=== PATIENT | male | born 1950 | race Caucasian/White ===

== ENCOUNTER → 2023-08-09 18:51 | Outpatient (REF) | payer MEDICARE, OTHER, SELFPAY | LOC: PAVMRI 18:51 | PROVIDERS: ATTENDING PHYSICIAN Internal Medicine | DX: E11.65 Type 2 diabetes mellitus with hyperglycemia (principal); R03.0 Elevated blood-pressure reading, without diagnosis of hypertension; G45.9 Transient cerebral ischemic attack, unspecified | CPT/HCPCS: 70551 ==

== ENCOUNTER → 2023-08-23 13:28 | Outpatient (REF) | payer MEDICARE, OTHER, SELFPAY | LOC: DHCBC MAIN 13:28 | PROVIDERS: ATTENDING PHYSICIAN Internal Medicine Cardiovascular Disease; FAMILY PHYSICIAN Internal Medicine | DX: I10 Essential (primary) hypertension (principal); R41.0 Disorientation, unspecified | CPT/HCPCS: 93306 ==

== ENCOUNTER 2024-04-03 07:16 | Emergency (ER) | payer MEDICARE, OTHER, SELFPAY ==
[2024-04-03 08:14] VITALS: BMI 40.3
--- NOTE | 2024-04-03 08:22 | ED.GENMED ---
History of Present Illness
General
Chief Complaint: Back Pain
Source: patient, records and spouse
Exam Limitations: none
Time Seen by Provider: 04/03/24 08:04
Nursing documentation reviewed up to this point in time: agreed with
History of Present Illness
History of Present Illness:
73-year-old male presents emergency department complaining of low back pain, ongoing for the past week. He has had back pain in the past, when he fractured L1 in 2012, and an L5 injury in 2002. He saw Dr. Cyr, his primary care physician was
prescribed methylprednisolone, takes tramadol and ibuprofen. Is worse when he moves. He had some numbness in his left thigh but that has dissipated.
Past History
Past History
ED Past Medical History: Hypercholesterolemia
ED Past Surgical History: Appendectomy
Social History
Tobacco: Former smoker
Alcohol: None
Drug: None
Personal:
Living: with family
Review of Systems
Review of Systems
Allergies reviewed?: Yes
All Other Systems: Not applicable
Constitutional: Reports no symptoms
EENT: Reports no symptoms
Respiratory: Reports no symptoms
Cardiac: Reports no symptoms
ABD/GI: Reports no symptoms
: Reports no symptoms
Musculoskeletal: Reports back pain
Skin: Reports no symptoms
Neurological: Reports no symptoms
Endocrine: Reports no symptoms
Hematologic/Lymphatic: Reports no symptoms
Psychiatric: Reports no symptoms
Phy Exam
Physical Exam
Physical Exam:
Physical Exam
General: Appears uncomfortable
Neck: supple. no meningeal signs. normal posterior pharynx
Heart: s1/s2 regular rate and rhythm, no murmur. equal radial
pulses.
HEENT: Pupils equal round reactive to light, EOMI
Lungs: no acute respiratory distress. clear bilaterally
Abdomen: normal bowel sounds. not tender. no CVAT
back: mild pain with left straight leg raise, no step off or deformity on lumbar spine
Neuro: alert and oriented. no focal neurological deficits cranial nerves II through XII intact
Skin: no rash
Psychiatric: well kept. interactive and cooperative
Extremities: no edema. no calf tenderness. negative homans. good distal pulses
Course
Orders/Labs/Results
Orders:
Orders
04/03/24 08:19
IV Insert/Care/Rem.- Treatment PRN
Ketorolac [Toradol] 15 mg IV NOW STA
04/03/24 08:22
Lumbar Spine Complete, 4 View [CR Lumbar Spine Comp Min 4 Vw*] Urgent
Comment:
Reason For Exam: low back pain, pain with walking
04/03/24 08:42
Complete Blood Count/With Diff Urgent
Comprehensive Metabolic Panel Urgent
04/03/24 09:09
Morphine Sulfate 4 mg IV NOW STA
04/03/24 09:10
Ondansetron Injectable [Zofran] 4 mg IV NOW STA
Abnormal Lab Results
04/03/24
08:42
WBC 10.9 H 10^3/uL
(4.8-10.8)
Abs Immat Gran (auto) 0.1 H 10^3/uL
(0-0.05)
Absolute Neuts (auto) 7.5 H 10^3/uL
(1.4-6.5)
Absolute Monos (auto) 0.7 H 10^3/uL
(0.1-0.6)
Immature Gran % 0.7 H %
(0-0.5)
Glucose 181 H mg/dl
(70-99)
04/03/24 08:42
04/03/24 08:42
Vital Signs
Initial and Last Documented VS:
Initial Vital Signs
Pulse Resp BP Pulse Ox
74 18 175/73 93
04/03/24 09:22 04/03/24 09:22 04/03/24 09:22 04/03/24 09:22
Last Documented Vital Signs
Pulse Resp BP Pulse Ox
72 18 151/68 91
04/03/24 11:20 04/03/24 11:20 04/03/24 11:20 04/03/24 11:20
MDM/Problems Addressed
Differential Diagnosis Includes:
Sciatica, arthritis
MDM/Problems Addressed:
73-year-old male with low back pain, ambulating without difficulty. Do not suspect cauda equina. Stable for discharge.
*Radiology
Radiology exam reviewed: radiology read reviewed (Lumbar x-ray no acute findings earlier than)
*Pulse Oximetry
Patient hypoxic: no
*Critical Care Note
Total Time (30-74mins, 75-104mins- exclusive of procedures): Not Applicable
Patient Management
Social determinants of health affecting care: Living situation
Escalation/DeEscalation of care consider admission/obs:
Admit not indicated
ED Attending Note
-
Portions of this chart may have been created with voice recognition software.� Occasional wrong word or��sound alike� substitutions may have occurred due to the inherent limitations of voice recognition software.
Discharge Plan
Departure
Patient Disposition: Home (Routine Discharge)
Date of Disposition: 04/03/24
Time of Disposition: 11:02
Patient with high blood pressure during this ER visit?: Yes
Condition: Good
Discharge Problem:
Low back pain
Instructions: Low Back Pain (DC), BLOOD PRESSURE
Prescriptions:
No Action
Simvastatin
1 tab PO DAILY
oxycodone-acetaminophen 1 TABLET tablet
1 - 2 tab PO Q6HPRN PRN (Reason: back pain) Qty: 16 0RF
oxycodone-acetaminophen 1 EACH tablet
1 tab PO Q6HPRN PRN (Reason: back pain) Qty: 16 0RF
oxycodone-acetaminophen [Percocet] 5-325 mg tablet
1 tab PO Q6HPRN PRN (Reason: pain) Qty: 14 0RF
Referrals:
John Ralph MD [Active] - Call in 1-3 days for appt
Devante Cyr MD [Family Provider] - Call in 1-3 days for appt
Interventions
Interventions:
*Risk Screen - Suicide Last Done: 04/03/24 07:18
*General Assessment Last Done: 04/03/24 07:18
*Neglect/Abuse Screening Last Done: 04/03/24 07:18
*Nursing Disposition Last Done: 04/03/24 11:25
ED-Musculoskeletal Assessment Last Done: 04/03/24 08:12
Discharge Date and Time
Discharge Date/Time: 04/03/24 11:26
Print Language: YI
[2024-04-03] MEDS: TORADOL 15 MG IV (08:40)
[2024-04-03 08:52] LABS: % Basophils 0.8 % (0-2); % Eosinophils 1.4 % (0-6); % Immature Granulocytes 0.7 % (0-0.5); % Lymphocytes 21.6 % (20.5-51.1); % Monocytes 6.3 % (1.7-9.3); % Neutrophils 69.2 % (42.2-75.2); Absolute Basophils 0.1 10^3/uL (0-0.2); Absolute Eosinophils 0.2 10^3/uL (0-0.7); Absolute Immature Granulocytes 0.1 10^3/uL (0-0.05); Absolute Lymphocytes 2.4 10^3/uL (1.2-3.4); Absolute Monocytes 0.7 10^3/uL (0.1-0.6); Absolute Neutrophils 7.5 10^3/uL (1.4-6.5); Hematocrit 41.8 % (39.0-52.0); Hemoglobin 14.8 g/dL (13.0-18.0); Mean Corp Hgb Conc. 35.4 g/dL (33.0-37.0); Mean Corpuscular Hgb 30.2 pg (27.0-31.0); Mean Corpuscular Volume 85.3 fL (80.0-94.0); Mean Platelet Volume 8.9 fL (7.4-10.4); Nucleated Red Blood Cells % 0 % (-); Platelet Count 255 10^3/uL (130-400); Red Cell Dist. Width 12.7 % (11.5-14.5); White Blood Cell Count 10.9 10^3/uL (4.8-10.8)
[2024-04-03 09:05] LABS: ALT (SGPT) 29 U/L (0-50); AST (SGOT) 23 U/L (17-59); Albumin 4.5 g/dl (3.5-5.0); Alkaline Phosphatase 75 U/L (38-126); Blood Urea Nitrogen 17 mg/dl (9-20); Calcium 9.4 mg/dl (8.4-10.2); Carbon Dioxide 26 mmol/L (22-30); Chloride 101 mmol/L (98-107); Estimated Creatinine Clearance 118 ml/min; Glucose 181 mg/dl (70-99); Potassium 4.7 mmol/L (3.5-5.1); Sodium 139 mmol/L (135-145); Total Bilirubin 0.7 mg/dl (0.2-1.3); Total Protein 7.1 g/dl (6.3-8.2); eGFR > 60.00
[2024-04-03] MEDS: ZOFRAN 4 MG IV (09:19)
[2024-04-03] MEDS: MORPHINE SULFATE 4 MG IV (09:19)
[2024-04-03 09:22] VITALS: BP 175/73
[2024-04-03 11:20] VITALS: BP 151/68
== END 2024-04-03 11:26 | disposition home or self-care (01) ==
LOC: EMR 07:16
PROVIDERS: EMERGENCY PHYSICIAN Emergency Medicine; FAMILY PHYSICIAN Internal Medicine
DX: M54.50 Low back pain, unspecified (principal); R20.0 Anesthesia of skin; R03.0 Elevated blood-pressure reading, without diagnosis of hypertension; E78.00 Pure hypercholesterolemia, unspecified; Z87.891 Personal history of nicotine dependence
CPT/HCPCS: 99284; 96374; 96375 ×2; 72110; 80053; 85025; 99283

== ENCOUNTER 2024-04-03 12:31 | Emergency (ER) | payer MEDICARE, OTHER, SELFPAY ==
[2024-04-03 12:36] VITALS: BP 175/79
--- NOTE | 2024-04-03 13:30 | ED.GENMED ---
History of Present Illness
General
Chief Complaint: Back Pain
Source: patient and spouse
Exam Limitations: none
Time Seen by Provider: 04/03/24 13:01
Nursing documentation reviewed up to this point in time: agreed with
History of Present Illness
History of Present Illness:
73 yo male was seen here earlier today for low back pain, discharged and when he got home he had pain so bad he went down on all fours and couldn't get him up.
He states 2 weeks ago he woke up with pain lower back that has gradually worsened. He has been OK to do his ADLs until 5 days ago, he has been walking bent over, if he stands straight, gets severe pain 'it almost knocks me to the ground.'
Denies loss of bowel or bladder control, denies weakness in legs, had some numbness inner left thigh but that has subsided.
He has seen his PCP 3 times in past 2 weeks, has had steroid taper, Tylenol, Ibuprofen, Tramadol, all with no relief. Ordered MRI yesterday but pt hasn't scheduled it yet.
No recollection of overuse or injury.
He is requesting something stronger for pain.
Past History
Past History
ED Past Medical History: Hypercholesterolemia and NIDDM
ED Past Surgical History: Appendectomy
Social History
Tobacco: Former smoker
Alcohol: None
Drug: None
Personal:
Living: with family
Review of Systems
Review of Systems
Allergies reviewed?: Yes
All Other Systems: ROS reviewed and negative except as documented in HPI and ROS
Constitutional: Denies fever or chills
Respiratory: Denies trouble breathing
Cardiac: Denies chest pain
ABD/GI: Denies abdominal pain
: Denies incontinence or difficulty voiding
Musculoskeletal: Reports back pain
Skin: Reports no symptoms
Neurological: Reports no symptoms
Phy Exam
General Physical Exam
General Presentation: well appearing and no apparent distress
General age: appears stated age
General Skin: warm and dry
General Habitus: normal
General Mental: alert (pleasant)
Cardiovascular Exam
Cardiovascular Exam: regular rate/rhythm and no edema
Heart Sounds: normal
Pulmonary Exam
Pulmonary Exam: lungs clear
Gastrointestinal Exam
Gastrointestinal Exam: non tender and soft
Neurological Exam
Neurological Exam: alert and no motor deficits
Musculoskeletal Exam
Musculoskeletal Exam: back pain (Moves with relative ease, up and down from sit to stand easily, ambulates well, slightly flexed forward. Mild pain with palpation across lower back ST, no spinal bony tenderness)
Skin Exam
Skin Exam: normal color and warm/dry
Psychiatric Exam
Psychiatric Exam: normal mood/affect
Course
Vital Signs
Initial and Last Documented VS:
Initial Vital Signs
Temp Pulse Resp BP Pulse Ox
97.6 F 79 16 175/79 96
04/03/24 12:36 04/03/24 12:36 04/03/24 12:36 04/03/24 12:36 04/03/24 12:36
Last Documented Vital Signs
Temp Pulse Resp BP Pulse Ox
97.6 F 84 16 154/74 99
04/03/24 12:36 04/03/24 14:15 04/03/24 14:15 04/03/24 14:15 04/03/24 14:15
MDM/Problems Addressed
Differential Diagnosis Includes:
low back strain, osteoarthritis, bulging disc
MDM/Problems Addressed:
73 yo male was seen here earlier today for low back pain, discharged and when he got home he had pain so bad he went down on all fours and couldn't get him up.
He states 2 weeks ago he woke up with pain lower back that has gradually worsened. He has been OK to do his ADLs until 5 days ago, he has been walking bent over, if he stands straight, gets severe pain 'it almost knocks me to the ground.'
Denies loss of bowel or bladder control, denies weakness in legs, had some numbness inner left thigh but that has subsided.
He has seen his PCP 3 times in past 2 weeks, has had steroid taper, Tylenol, Ibuprofen, Tramadol, all with no relief. Ordered MRI yesterday but pt hasn't scheduled it yet.
No recollection of overuse or injury.
He is requesting something stronger for pain.
No cauda equina. Pt ambulating well, gets up and down from chair with ease, admits it's not bothering him much now.
spoke with MRI department and they will schedule MRI per their protocol.
Rx for Percocet sent to pt pharmacy
2:15 p.m.
Pt ambulated out with slightly slow, steady gait
Pt had no significant pain during visit
*Critical Care Note
Total Time (30-74mins, 75-104mins- exclusive of procedures): Not Applicable
ED Attending Note
-
Portions of this chart may have been created with voice recognition software.� Occasional wrong word or��sound alike� substitutions may have occurred due to the inherent limitations of voice recognition software.
Discharge Plan
Departure
Patient Disposition: Home (Routine Discharge)
Date of Disposition: 04/03/24
Time of Disposition: 14:08
Patient with high blood pressure during this ER visit?: Yes
Condition: Good
Discharge Problem:
Low back pain
Instructions: Low Back Pain (DC)
Prescriptions:
New
oxycodone-acetaminophen [Percocet] 5-325 mg tablet
1 tab PO Q6HPRN PRN (Reason: pain) Qty: 14 0RF
No Action
Simvastatin
1 tab PO DAILY
oxycodone-acetaminophen 1 TABLET tablet
1 - 2 tab PO Q6HPRN PRN (Reason: back pain) Qty: 16 0RF
oxycodone-acetaminophen 1 EACH tablet
1 tab PO Q6HPRN PRN (Reason: back pain) Qty: 16 0RF
Referrals:
Devante Cyr MD [Family Provider] - Call in 1-3 days for appt
Activity Restrictions/Additional Instructions:
As we discussed, follow-up with Dr. Cyr after your MRI. There should be a prescription at your pharmacy for the oxycodone�acetaminophen which is Percocet.
Call me at [phone] if the pharmacy does not have the prescription.
I called MRI dept. and left your number for a call back to schedule MRI so keep your phone by you.
Interventions
Interventions:
*Risk Screen - Suicide Last Done: 04/03/24 13:08
*General Assessment Last Done: 04/03/24 13:08
*Neglect/Abuse Screening Last Done: 04/03/24 13:08
ED- Fall Risk Assessment Last Done: 04/03/24 13:08
*Nursing Disposition Last Done: 04/03/24 14:10
ED-Musculoskeletal Assessment Last Done: 04/03/24 13:08
Discharge Date and Time
Discharge Date/Time: 04/03/24 14:23
Print Language: CAMBODIAN
--- NOTE | 2024-04-03 14:11 | EDRN ---
Pts on phone with MRI for sooner follow up appointment.
[2024-04-03 14:15] VITALS: BP 154/74
== END 2024-04-03 14:23 | disposition home or self-care (01) ==
LOC: EMR 12:31
PROVIDERS: EMERGENCY PHYSICIAN Student in an Organized Health Care Education/Training Program; FAMILY PHYSICIAN Internal Medicine
DX: M54.50 Low back pain, unspecified (principal); R26.2 Difficulty in walking, not elsewhere classified; R03.0 Elevated blood-pressure reading, without diagnosis of hypertension; E11.9 Type 2 diabetes mellitus without complications; E78.00 Pure hypercholesterolemia, unspecified; Z87.891 Personal history of nicotine dependence
CPT/HCPCS: 99283

== ENCOUNTER → 2024-04-04 16:45 | Outpatient (REF) | payer MEDICARE, OTHER, SELFPAY | LOC: MRI 16:45 | PROVIDERS: ATTENDING PHYSICIAN Internal Medicine | DX: M51.36 Other intervertebral disc degeneration, lumbar region (principal) | CPT/HCPCS: 72148 ==

== ENCOUNTER → 2024-05-06 13:39 | Outpatient (REF) | payer MEDICARE, OTHER, SELFPAY | LOC: MRI 3T 13:39 | PROVIDERS: ATTENDING PHYSICIAN Internal Medicine | DX: E11.65 Type 2 diabetes mellitus with hyperglycemia (principal) | CPT/HCPCS: 70551 ==

== ENCOUNTER → 2025-04-01 11:19 | Outpatient (REF) | payer MEDICARE, OTHER, SELFPAY | LOC: HWRCS 11:19 | PROVIDERS: ATTENDING PHYSICIAN Internal Medicine Cardiovascular Disease; FAMILY PHYSICIAN Internal Medicine | DX: R07.89 Other chest pain (principal) | CPT/HCPCS: 78452; 93017; A9500; J2785 ==

== ENCOUNTER 2025-06-02 07:47 | Emergency (ER) | payer MEDICARE, OTHER, SELFPAY ==
[2025-06-02 07:52] VITALS: BP 168/83
[2025-06-02 08:00] VITALS: BMI 39.0
[2025-06-02 08:18] VITALS: BP 163/84
--- NOTE | 2025-06-02 08:45 | ED.CVA ---
History of Present Illness
<Jodi Cedeno MD, Resident - Last Filed: 06/02/25 12:47>
General
Chief Complaint: CVA/TIA Symptoms
Source: patient
Exam Limitations: none
Time Seen by Provider: 06/02/25 08:09
Onset of Stroke Symptoms
Onset of symptoms known: Yes
Date of onset of symptoms: 06/01/25
Time of onset of symptoms: 21:00
Time pt last seen normal is known: Yes
Date last time pt seen normal: 06/01/25
Time last time pt seen normal: 21:00
History of Present Illness
History of Present Illness:
Patient is a 74year old male with PMH significant for NIDDM,and Hyperlipidemia who is here for evaluation of transient symptoms of slurred speech, dizziness and inability to make sense of sentences.He developed the symptoms arounf 9pm last
night,while watching television. He had initially dizziness and then a headache followed by slurred speech,. He and his were driving to the hospital but then the symptoms self resolved and they decided to go back. Throughout the night, he
was stressed and was having weird thoughts. He woke up in the morning and called his primary care physician who suggested that he should come to the ER.
He did report occasional dizziness for the last few months and has seen a neurologist on 05/30/2025. The neurologist did order a head CT, [facility] Since this is new onset of symptoms we will do a head CT.
Denies any headache, weakness, dizziness, numbness, tingling, chest pain, or slurring of speech at this time
Past History
<Jodi Cedeno MD, Resident - Last Filed: 06/02/25 12:47>
Past History
ED Past Medical History: Hypercholesterolemia
ED Past Surgical History: Appendectomy
Social History
Tobacco: Former smoker
Alcohol: None
Drug: None
Personal:
Living: with family
Review of Systems
<Jodi Cedeno MD, Resident - Last Filed: 06/02/25 12:47>
Review of Systems
All Other Systems: ROS reviewed and negative except as documented in HPI and ROS
Phy Exam
<Jodi Cedeno MD, Resident - Last Filed: 06/02/25 12:47>
General Physical Exam
General Presentation: well appearing and no apparent distress
General age: appears stated age
General Skin: warm and dry
General Habitus: normal
General Mental: alert
General Hydration: appears well hydrated
Cardiovascular Exam
Cardiovascular Exam: regular rate/rhythm, no edema, no murmur and normal peripheral pulses
Pulmonary Exam
Pulmonary Exam: lungs clear, no respiratory distress, no rales, no rhonchi and no wheezing
Gastrointestinal Exam
Gastrointestinal Exam: normal bowel sounds, non tender and soft
Neurological Exam
Neurological Exam: alert, oriented x3, CN II-XII intact, no motor deficits, no sensory deficits and cerebellum intact
NIH Stroke Score
Level of Consciousness: 0 - Alert
Best Gaze: 0-Normal
Visual [place]: 0=Normal, no visual loss
Facial palsy: 0=Normal, symmetrical
Motor - Right Arm: 0=No drift 10 seconds
Motor - Left Arm: 0=No drift 10 seconds
Motor - Right Le-No drift 5 seconds
Motor - Left Le-No drift 5 seconds
Sensation: 0-Normal
Best Language: 0-No aphasia
Dysarthria: 0-Normal
Extinction and Inattention: 0-No abnormality
[place] Coma Scale
Eye Opening: Spontaneous
Verbal Response: Oriented
Motor Response: Obeys Commands
GCS Total Score: 15
Musculoskeletal Exam
Musculoskeletal Exam: full ROM
<Horacio Fernandes MD - Last Filed: 06/03/25 19:19>
[place] Coma Scale
GCS Total Score: 15
Course
<Jodi Cedeno MD, Resident - Last Filed: 06/02/25 12:47>
Orders/Labs/Results
Orders:
Orders
06/02/25 08:37
Electrocardiogram (*1) Urgent
Reason for Study: TIA/Stroke
EKG- Treatment ONCE
06/02/25 08:53
Complete Blood Count/With Diff Urgent
Comprehensive Metabolic Panel Urgent
Ferritin Urgent
Comment: ADD ON
Folate Urgent
Comment: ADD ON
Magnesium Urgent
TSH Reflex To Free T4 Urgent
Comment: ADD ON
Vitamin B12 Urgent
Comment: ADD ON
06/02/25 09:28
NEUROLOGY CONSULT Urgent
Consulting Provider: Clemente Russell
Was physician already notified: Yes
Reason for consult: Slurred speech
06/02/25 09:38
CT Head & Neck Angio W/wo IV Routine
Comment:
Reason For Exam: transient aphasia/dysarthria
06/02/25 11:59
Echo 2D MMode Doppler [Echo 2D MMode Color/Doppler] Urgent
Reason for Study: TIA
06/02/25 13:48
Add On- LAB Routine
Tests Added?: folate, ferritin, TSH reflex, B12
Abnormal Lab Results
06/02/25
08:53
Abs Immat Gran (auto) 0.1 H 10^3/uL
(0-0.05)
Immature Gran % 0.8 H %
(0-0.5)
Glucose 176 H mg/dl
(70-99)
06/02/25 08:53
06/02/25 08:53
Vital Signs
Initial and Last Documented VS:
Initial Vital Signs
Temp Pulse Resp BP Pulse Ox
98.2 F 79 16 168/83 96
06/02/25 07:52 06/02/25 07:52 06/02/25 07:52 06/02/25 07:52 06/02/25 07:52
Last Documented Vital Signs
Temp Pulse Resp BP Pulse Ox
98.2 F 71 20 130/67 97
06/02/25 07:52 06/02/25 11:00 06/02/25 11:00 06/02/25 11:00 06/02/25 11:00
<Horacio Fernandes MD - Last Filed: 06/03/25 19:19>
Orders/Labs/Results
Orders:
Orders
06/02/25 08:37
Electrocardiogram (*1) Urgent
Reason for Study: TIA/Stroke
EKG- Treatment ONCE
06/02/25 08:53
Complete Blood Count/With Diff Urgent
Comprehensive Metabolic Panel Urgent
Ferritin Urgent
Comment: ADD ON
Folate Urgent
Comment: ADD ON
Magnesium Urgent
TSH Reflex To Free T4 Urgent
Comment: ADD ON
Vitamin B12 Urgent
Comment: ADD ON
06/02/25 09:28
NEUROLOGY CONSULT Urgent
Consulting Provider: Clemente Russell
Was physician already notified: Yes
Reason for consult: Slurred speech
06/02/25 09:38
CT Head & Neck Angio W/wo IV Routine
Comment:
Reason For Exam: transient aphasia/dysarthria
06/02/25 11:59
Echo 2D MMode Doppler [Echo 2D MMode Color/Doppler] Urgent
Reason for Study: TIA
06/02/25 13:48
Add On- LAB Routine
Tests Added?: folate, ferritin, TSH reflex, B12
Abnormal Lab Results
06/02/25
08:53
Abs Immat Gran (auto) 0.1 H 10^3/uL
(0-0.05)
Immature Gran % 0.8 H %
(0-0.5)
Glucose 176 H mg/dl
(70-99)
06/02/25 08:53
06/02/25 08:53
Vital Signs
Initial and Last Documented VS:
Initial Vital Signs
Temp Pulse Resp BP Pulse Ox
98.2 F 79 16 168/83 96
06/02/25 07:52 06/02/25 07:52 06/02/25 07:52 06/02/25 07:52 06/02/25 07:52
Last Documented Vital Signs
Temp Pulse Resp BP Pulse Ox
98.2 F 71 20 130/67 97
06/02/25 07:52 06/02/25 11:00 06/02/25 11:00 06/02/25 11:00 06/02/25 11:00
<Jodi Cedeno MD, Resident - Last Filed: 06/02/25 12:47>
MDM/Problems Addressed
Differential Diagnosis Includes:
TIA/stroke
MDM/Problems Addressed:
Based on clinical assessment, symptoms consistent with transient ischemic attack. Will do a head CT without IV contrast. Will also order baseline blood work.
CT head and neck unremarkable
Neurology consult appreciated-recommended dual antiplatelet therapy for neck 21 days and then indefinite aspirin therapy lifelong
Educated about stroke symptoms
Echocardiogram done
Would recommend to watch out for neurological symptoms and do not wait to present to the ED.
<Jodi Cedeno MD, Resident - Last Filed: 06/02/25 12:47>
*Pulse Oximetry
SaO2: 98
Oxygen Mode of Delivery: Room air
Patient hypoxic: no
*Critical Care Note
Total Time (30-74mins, 75-104mins- exclusive of procedures): Not Applicable
<Horacio Fernandes MD - Last Filed: 06/03/25 19:19>
*EKG
Interpreted by ED Provider?: Yes
EKG Intrepretation Date: 06/02/25
Heart Rate: 75
Rate: normal
Rhythm: sinus
[place]: normal axis
ED Attending Note
<Jodi Cedeno MD, Resident - Last Filed: 06/02/25 12:47>
-
Portions of this chart may have been created with voice recognition software.� Occasional wrong word or��sound alike� substitutions may have occurred due to the inherent limitations of voice recognition software.
<Horacio Fernandes MD - Last Filed: 06/03/25 19:19>
ED Attending Note
Patient seen and examined by attending physician: Yes
ED Attending Note:
Patient with history of diabetes and hypercholesterolemia, presents to ED secondary to sudden onset of slurred speech with dizziness, while watching TV last night around 9 PM. Symptoms lasted approximate 30 minutes with spontaneous resolution.
Since then, patient has not had any recurrent symptoms. This morning, when he woke up, without any symptoms, he called his primary care physician who advised patient come to ED for an evaluation. Denies headache. Denies difficulty with
swallowing. Denies loss of sensation or weakness. Denies difficulty with ambulation. Denies previous history of similar symptoms. However, over the past 7 to 8 months, he has had dizziness, for which she was evaluated by neurologist recently.
He had an outpatient imaging study last week. He does not know the results of the study.
Physical Exam
General: no apparent distress, not acutely ill. afebrile
Head: nc/at. eomi
Neck: supple. no meningeal signs.
Heart: s1/s2 regular rate and rhythm
Lungs: no acute respiratory distress. clear bilaterally
Abdomen: normal bowel sounds. not tender.
Neuro: alert and oriented x 3. no focal sensory/motor deficit. normal speech. normal gait
Skin: no rash
Psychiatric: well kept. interactive and cooperative
Extremities: no edema. no calf tenderness.
History and exam concerning for TIA. CT head pending. Will consult neurology afterwards.
Pt evaluated in ED by (neurology) - recommends obtaining CTA head/neck.
CTA head/neck report reviewed and discussed with patient and who evaluated the patient again afterwards. Recommends D/C on DAP (asa/plavix) x 3 weeks, followed by aspirin 81mg only daily afterwards, along with outpatient neurology f/u.
Pt expresses understanding at time of discharge.
Discharge Plan
Departure
Patient Disposition: Home (Routine Discharge)
Date of Disposition: 06/02/25
Time of Disposition: 11:15
Patient with high blood pressure during this ER visit?: Yes
Discharge Problem:
CVA/TIA
Instructions: Stroke (DC), Transient Ischemic Attack (DC)
Prescriptions:
No Action
simvastatin [Zocor] 40 mg Tablet
40 mg PO DAILY
aspirin 81 mg Tablet,Delayed Release (Dr/Ec)
81 mg PO DAILY
metformin 500 mg Tablet Extended Release 24 Hr
1,000 mg PO DAILY
clopidogrel [Plavix] 75 mg tablet
75 mg PO DAILY
Referrals:
Clemente Russell MD [Active, Neurology] - Call in 1-3 days for appt
Devante Cyr MD [Family Provider, Internal Medicine]
Activity Restrictions/Additional Instructions:
DUAL ANTI PLATELET THERAPY-21 DAYS-(ASPIRIN 81MG + PLAVIX 75MG)
CONTINUE ASPIRIN AFTER 21 DAYS INDEFINITELY LIFELONG
FOLLOW UP WITH NEUROLOGY ON OUTPATIENT BASIS
IN CASE OF STROKE S/S PLEASE RETURN TO ED IMMEDIATELY
Interventions
Interventions:
*Risk Screen - Suicide Last Done: 06/02/25 07:52
*General Assessment Last Done: 06/02/25 08:37
*Neglect/Abuse Screening Last Done: 06/02/25 07:53
*ED- Fall Risk Assessment Last Done: 06/02/25 08:37
*Nursing Disposition Last Done: 06/02/25 12:30
ED- Pulmonary Assessment Last Done: 06/02/25 08:00
ED- Neurological Assessment Last Done: 06/02/25 08:00
ED- Cardiac Assessment Last Done: 06/02/25 08:00
ED Swallowing Screen Last Done: 06/02/25 08:00
Discharge Date and Time
Discharge Date/Time: 06/02/25 12:30
Print Language: GERMAN
[2025-06-02 09:00] VITALS: BP 154/78
[2025-06-02 09:04] LABS: Hematocrit 41.5 % (39.0-52.0); Hemoglobin 14.0 g/dL (13.0-18.0); Mean Corp Hgb Conc. 33.7 g/dL (33.0-37.0); Mean Corpuscular Volume 87.9 fL (80.0-94.0); Nucleated Red Blood Cells % 0 % (-); Platelet Count 293 10^3/uL (130-400); Red Cell Dist. Width 12.2 % (11.5-14.5)
[2025-06-02 09:19] LABS: ALT (SGPT) 32 U/L (0-50); AST (SGOT) 30 U/L (17-59); Albumin 4.4 g/dl (3.5-5.0); Alkaline Phosphatase 79 U/L (38-126); Blood Urea Nitrogen 12 mg/dl (9-20); Calcium 9.9 mg/dl (8.4-10.2); Carbon Dioxide 29 mmol/L (22-30); Chloride 101 mmol/L (98-107); Estimated Creatinine Clearance 103 ml/min; Glucose 176 mg/dl (70-99); Magnesium 1.7 mg/dl (1.6-2.3); Potassium 4.7 mmol/L (3.5-5.1); Sodium 135 mmol/L (135-145); Total Protein 7.4 g/dl (6.3-8.2); eGFR > 60.00
--- NOTE | 2025-06-02 09:29 | CON.NEURO4 ---
Addendum entered and electronically signed by Clemente Russell MD 06/02/25 21:45:
The patient was seen and examined today along with the nurse practitioner Ambar Barber, and I agree with her assessment and management plan. Given below is my addendum.
The patient is a 74 years old male who presented to the hospital with report of transient speech difficulty and dysarthria that started at around 9 PM last night and lasted for about an hour. The patient returned to his baseline and today presented
to have himself evaluated for that transient speech difficulty that occurred last night.
Neurologic examination:
Alert and oriented x 3, speech is clear, the cranial nerves II to XII are grossly intact, there is no visual field deficit. The motor strength is grossly 5 out of 5 bilaterally, the sensations are intact and there was no limb ataxia seen.
The CT of the brain did not show any acute intracranial process. CT of the head and neck did not show a large vessel occlusion.
The patient likely had a left hemispheric transient ischemic attack. The plan is to keep the patient on aspirin 81 mg daily and clopidogrel 75 mg daily for 21 days and after 21 days the plan is to stop clopidogrel and continue with aspirin 81 mg
daily indefinitely. The patient also needs to be on atorvastatin 40 mg daily.
Follow-up with neurology in 2 weeks as an outpatient.
Original Note:
Consultation - Neurology 4
-
CONSULTING PHYSICIAN: Clemente Russell MD
REFERRING PHYSICIAN: ER/Dr. Fernandes
DICTATED BY: KWESI Ramos
DATE/TIME OF REQUEST: 06/02/25
DATE/TIME OF CONSULTATION: 06/02/25
Reason for Consultation: Transient speech changes
History of Present Illness:
This is a 74-year-old right-handed male who has presented to the hospital with report of transient speech difficulty and dysarthria last night. He is followed by Neurology Dr. Saldaña as an outpatient due to memory difficulty, dizziness, and tremor. He
reports that he completed neuropsychological testing on 05/30/25.
From previous evaluation by Neurology Dr. Saldaña on 10/25/24:
'
'
Patient reports that yesterday (06/01/25) he was watching TV when he suddenly developed a sense of dizziness, mild headache, and then proceeded to have slurred speech and difficulty getting his words out. He reports that his speech difficulty
completely resolved after one hour and he proceeded to go to bed for the night. This morning (06/02/25) he called his PCP who referred him to the ER for evaluation. CTA head/neck was obtained on arrival and is negative for any acute abnormalities.
He denies any headache, dizziness, vision changes, speech/swallow difficulty, numbness, and weakness. He reports that he was previously taking aspirin 81mg due to confusional episodes that were concerning for a transient ischemic attack, he stopped
taking this several months ago due to bruising on his hands.
Past Medical History: HTN, HLD, NIDDM, cognitive impairment, tremor
Surgical History: Appendectomy.
Family History: Reviewed and noncontributory.
Social History: Former smoker. Denies alcohol and illicit drug use.
Allergies: No known allergies.
Home Medications: See below.
Review of Symptoms:
Patient denies any fever, headache, chest pain, shortness of breath, GI or symptoms.
�Per the HPI.�All systems are reviewed negative except above.
Physical Exam:
The patient is afebrile, abdomen is nondistended, breathing is unlabored, skin is warm and dry, no edema.
NIH Stroke Scale:
I performed the NIH stroke scale on the patient on 06/02/25 at 0930. The patient scored 0 points on the NIH stroke scale assessment, which were assigned as follows: See below.
Neurologic Examination:
The patient is awake, alert and oriented x 3. He is able to follow commands and answer questions appropriately. There is no aphasia or dysarthria. On cranial nerve assessment, pupils are 3 mm bilateral, round and reactive to light and
accommodation. Visual eastman are full. Extraocular movements are intact. Facial sensations are intact and bilaterally symmetrical, there is no facial asymmetry. Hearing is intact bilaterally to normal conversation volume. Tongue palate and uvula are
midline. Sternocleidomastoid strengths are full bilaterally. Motor strengths are 5/5 bilateral upper and lower extremities on medical research [place] scale. There is no drift or involuntary movement noted. There was no extinction noted on double
simultaneous stimulation. Coordination is intact by finger to nose bilaterally.
Lab Results: See below.
Neuro Imaging:
1. CTA head/neck 06/02/25: CT Brain: No acute intracranial process. Mild senescent changes, similar to prior. There is partial opacification of the right maxillary sinus for which acute sinusitis is possible. Recommend correlation with
symptomatology. CTA Head: No significant arterial stenosis. Mild atherosclerotic calcification of the carotid siphons. No aneurysm. CTA Neck: No significant arterial stenosis. Mild atherosclerotic calcifications of the bilateral carotid bifurcations
without definite stenosis.
Differentials for the patient's presentation include:
1. Transient speech difficulty; uncertain etiology, possibilities include transient ischemic attack, headache phenomenon, metabolic disturbance in the setting of cognitive impairment.
Patient has the following risk factors for their symptoms: Cognitive impairment, HTN, HLD, DM, age
IV Tenecteplase/IAT candidacy: Not a candidate due to resolution of symptoms, NIHSS 0, no LVO.
Recommendations:
-Initiate DAPT with aspirin 81mg and clopidogrel 75mg daily for 21 days. After 21 days, stop clopidogrel and continue aspirin 81mg daily only, indefinitely.
-Goal normotension.
-Provide patient with a stroke education packet.
-Checking blood work for metabolic disturbances.
-TTE pending.
-LDL goal <70. Initiate atorvastatin 40mg daily.
-Goal normoglycemia.
-Follow-up with Neurology as an outpatient.
Discussed patient care with: Dr. Russell, the patient
Vital Signs and Labs
-
Vital Signs and Labs:
Vital Signs
Temp Pulse Resp BP Pulse Ox
98.2 F 78 16 163/84 98
06/02/25 07:52 06/02/25 08:30 06/02/25 08:30 06/02/25 08:18 06/02/25 08:46
Lab Results
06/02/25 08:53
06/02/25 08:53
Sodium 135 mmol/L (135-145) 06/02/25 08:53
Potassium 4.7 mmol/L (3.5-5.1) 06/02/25 08:53
BUN 12 mg/dl (9-20) 06/02/25 08:53
Glucose 176 mg/dl (70-99) H 06/02/25 08:53
Calcium 9.9 mg/dl (8.4-10.2) 06/02/25 08:53
Medications
-
Home Medications
�Medication �Instructions �Recorded
Simvastatin 1 tab PO DAILY 09/26/12
oxycodone-acetaminophen 5 mg-325 1 - 2 tab PO Q6HPRN PRN back pain 09/26/12
mg tablet #16 tabs
oxycodone-acetaminophen 5 mg-325 1 tab PO Q6HPRN PRN back pain #16 09/26/12
mg tablet tabs
oxycodone-acetaminophen 5 mg-325 1 tab PO Q6HPRN PRN pain #14 tabs 04/03/24
mg tablet (Percocet)
NIH Stroke Score
Subsequent NIH Scale
Date of Subsequent NIH Scale: 06/02/25
Time of Subsequent NIH Scale: 09:30
NIH Stroke Score
Level of Consciousness: 0 - Alert
LOC Questions: 0-Answers both correctly
LOC Commands: 0-Performs both correctly
Best Horizontal Gaze: 0-Normal
Visual Eastman: 0=Normal, no visual loss
Facial Palsy: 0=Normal, symmetrical
Motor - Right Arm: 0=No drift 10 seconds
Motor - Left Arm: 0=No drift 10 seconds
Motor - Right Le-No drift 5 seconds
Motor - Left Le-No drift 5 seconds
Limb Ataxia: 0-Absent
Sensation: 0-Normal
Best Language: 0-No aphasia
Dysarthria: 0-Normal
Extinction and Inattention: 0-No abnormality
NIH Total Score:: 0
Modified Justin (mRS) Score
Modified [place] Scale (mRS): No symptoms
Score: 0
Alteplase Contraindication
Inclusion and Exclusion criteria reviewed: Yes
Reasons for NON-Tx with Thrombolytics ABSOLUTE Exclusions: Greater than 4.5 hrs from onset of sxs
IAT Contraindications: NIHSS < 6 and Imaging doesn't show large vessel occlusion as cause of stroke
[2025-06-02 10:19] VITALS: BP 159/73
[2025-06-02 11:00] VITALS: BP 130/67
--- NOTE | 2025-06-02 11:33 | CON.NEURO4 ---
Consultation - Neurology 4
-
CONSULTING PHYSICIAN: Clemente Russell MD
REFERRING PHYSICIAN:
DICTATED BY:
DATE/TIME OF REQUEST:
DATE/TIME OF CONSULTATION:
Reason for Consultation:
History of Present Illness:
This is a (age) year old (left/right) handed (male/female) who has presented to the hospital with (chief complaint). Patient's symptoms began (time) ago, when (describe).
- For stroke patients please mention last known well time.
- Describe associated symptoms, if any. Describe any treatment taken and intervention made.
- Describe the current status of symptoms.
- Describe if patient is compliant with current medications - name the medications and follow up with the physician.
- Describe if patient has had any similar symptoms in the past.
- For stroke patients, mention if patient has had a prior stroke and if there are any residual deficits.
- If the history has been obtained from sources other than the patient, mention 'this history has been contributed to by'
and name the source: family/medical record/long-term/caregiver/nursing ect.
Past Medical History:
Surgical History:
Family History:
Social History:
Allergies:
Home Medications:
Review of Symptoms:
Patient denies any fever, headache, chest pain, shortness of breath, GI or symptoms.
�Per the HPI.�All systems are reviewed negative except above.
�- Remove any of these problems that patient may have complained about in the HPI.
�- If patient is unresponsive, intubated or demented, say 'Per the HPI. I am unable to obtain a complete review of systems�because of patient's inability to provide history.'
Vital Signs:
The patient has a blood pressure of ( ) , heart rate ( ) , temperature ( ) , respiratory rate ( ) and a pulse ox of ( ) on
(room air / oxygen by nasal cannula / ventilator).
Physical Exam:
The patient is afebrile, heart sounds S1 and S2 are (regular / irregular), and chest is clear to auscultation bilaterally.
- If not clear, describe.
NIH Stroke Scale (if applicable):
I performed the NIH stroke scale on the patient on (date & time). The patient scored ( ) points on the NIH stroke scale assessment, which were assigned as follows:
Neurologic Examination:
The patient is awake, alert and oriented x 3. (He/She) is able to follow commands and answer questions appropriately. There is no aphasia or dysarthria. On cranial nerve assessment, pupils are 3 mm bilateral, round and reactive to light and
accommodation. Visual sharpe are full. Extraocular movements are intact. Facial sensations are intact and bilaterally symmetrical, there is no facial asymmetry. Hearing is intact bilaterally to normal conversation volume. Tongue palate and uvula
are midline. Sternocleidomastoid strengths are full bilaterally. Motor strengths are 5/5 bilateral upper and lower extremities on medical research [place] scale. There is no drift or involuntary movement noted. Deep tendon reflexes are 2+ bilateral
upper and lower extremities and Babinski is absent bilaterally. Sensations of pain, touch, temperature and vibration are intact and bilaterally symmetrical. There was no extinction noted on double simultaneous stimulation. Coordination is intact by
finger to nose bilaterally.
Lab Results:
Neuro Imaging:
Impression:
(Mr. / Ms.) ENA LAUREANO is a 74 year old M who has presented to the hospital with (symptoms/chief complaint).
Differentials for the patient's presentation include:
1.
2.
3.
4.
Patient has the following risk factors for their symptoms:
IV Tenecteplase/IAT candidacy
Recommendations:
1.
2.
3.
Discussed patient care with:
[2025-06-02 15:15] LABS: Ferritin 306.0 ng/ml (17.9-464.0)
[2025-06-02 15:46] LABS: Folate 2.9 ng/ml (2.76-20); Vitamin B12 471 pg/ml (239-931)
== END 2025-06-02 12:30 | disposition home or self-care (01) ==
LOC: EMR 07:47
PROVIDERS: CONSULT PHYSICIAN Psychiatry & Neurology Neurology; EMERGENCY PHYSICIAN Emergency Medicine; FAMILY PHYSICIAN Internal Medicine
DX: G45.9 Transient cerebral ischemic attack, unspecified (principal); E11.9 Type 2 diabetes mellitus without complications; E78.00 Pure hypercholesterolemia, unspecified; I10 Essential (primary) hypertension; Z87.891 Personal history of nicotine dependence; Z90.49 Acquired absence of other specified parts of digestive tract
CPT/HCPCS: 99284; 70496; 70498; 80053; 82607; 82728; 82746; 83735; 84443; 85025; 93005; 93306; Q9967

== ENCOUNTER 2025-06-03 16:27 | Observation (INO) | payer MEDICARE, OTHER, SELFPAY ==
[2025-06-03] VITALS (7 sets, daily range): BP systolic 142–176; BP diastolic 64–79; BMI 38.6
[2025-06-03 14:30] LABS: Glucose - Point of Care 217 mg/dl (70-99)
[2025-06-03] MEDS: PLAVIX 300 MG PO (14:48)
[2025-06-03] MEDS: ASPIRIN 325 MG PO (14:48)
--- NOTE | 2025-06-03 14:51 | ED.CVA ---
History of Present Illness
General
Chief Complaint: CVA/TIA Symptoms
Time Seen by Provider: 06/03/25 14:37
Onset of Stroke Symptoms
Onset of symptoms known: Yes
Date of onset of symptoms: 06/03/25
History of Present Illness
History of Present Illness:
Patient is a 74-year-old man presenting to the emergency department with episode of dysarthria expressive aphasia. Patient last known normal was an hour prior to arrival when he developed dysarthria. On arrival here triage noted that he has
significant expressive aphasia so stroke alert was called. During my evaluation his symptoms have resolved.
Past History
Past History
ED Past Medical History: Hypercholesterolemia
ED Past Surgical History: Appendectomy
Social History
Tobacco: Former smoker
Alcohol: None
Drug: None
Personal:
Living: with family
Phy Exam
Physical Exam
Physical Exam:
GENERAL: in no acute distress
HEENT: normocephalic, extraocular movements intact, moist oral mucosa
NECK: normal inspection
RESPIRATORY: no respiratory distress, clear to auscultation bilaterally
CARDIOVASCULAR: regular rate and rhythm
ABDOMEN/: soft, non-distended, non-tender to palpation, no rebound or guarding
EXTREMITIES: non-tender, no edema/swelling
NEUROLOGIC: awake and alert, moves all extremities
SKIN: warm
NIH Stroke Score
Level of Consciousness: 0 - Alert
LOC questions: 0-Answers both correctly
LOC Commands: 0-Performs both correctly
Best Gaze: 0-Normal
Visual Eastman: 0=Normal, no visual loss
Facial palsy: 0=Normal, symmetrical
Motor - Right Arm: 0=No drift 10 seconds
Motor - Left Arm: 0=No drift 10 seconds
Motor - Right Le-No drift 5 seconds
Motor - Left Le-No drift 5 seconds
Limb Ataxia: 0-Absent
Sensation: 0-Normal
Best Language: 0-No aphasia
Dysarthria: 0-Normal
Extinction and Inattention: 1-Sensory inattention
Total Score:: 1
Course
Orders/Labs/Results
Orders:
Orders
06/03/25 14:33
CT HEAD STROKE ALERT W/o Cont Urgent
Comment:
Reason For Exam: speech difficulty
06/03/25 14:38
MR Brain Without Contrast Routine
Comment:
Reason For Exam: transient speech difficulty
Recent pill cam endoscopy?: No
Aspirin 325 mg PO NOW STA
Clopidogrel Bisulfate [Plavix] 300 mg PO NOW STA
06/03/25 15:02
Basic Metabolic Panel Urgent
Complete Blood Count/With Diff Urgent
Abnormal Lab Results
06/03/25 06/03/25
14:29 15:02
RBC 4.64 L 10^6/uL
(4.70-6.10)
POC Glucose 217 H mg/dl
(70-99)
06/03/25 15:02
Vital Signs
Initial and Last Documented VS:
Initial Vital Signs
Temp Pulse Resp BP Pulse Ox
98.7 F 89 16 160/73 98
06/03/25 14:21 06/03/25 14:21 06/03/25 14:21 06/03/25 14:21 06/03/25 14:21
Last Documented Vital Signs
Temp Pulse Resp BP Pulse Ox
98.7 F 79 20 163/78 96
06/03/25 14:21 06/03/25 14:45 06/03/25 14:45 06/03/25 14:43 06/03/25 14:55
MDM/Problems Addressed
Differential Diagnosis Includes:
Patient is a 74-year-old male presenting to the emergency department with expressive aphasia and dysarthria that has now resolved. On arrival vitals notable for hypertension. Exam did show his NIH score of 1 for sensory inattention. Per chart
review patient was seen here yesterday for the same and discharged on dual antiplatelet therapy. On arrival patient was a stroke alert. Neurology at bedside. Given the patient did have CT scanning done yesterday we will only proceed with dry head
CT. Recommended admission for MRI.
Discussed with hospitalist who excepted patient to their service pending blood work.
*Pulse Oximetry
SaO2: 98
Oxygen Mode of Delivery: Room air
Patient hypoxic: no
*Critical Care Note
Total Time (30-74mins, 75-104mins- exclusive of procedures): Not Applicable
ED Attending Note
-
Portions of this chart may have been created with voice recognition software.� Occasional wrong word or��sound alike� substitutions may have occurred due to the inherent limitations of voice recognition software.
Discharge Plan
Departure
Patient Disposition: Admit
Date of Disposition: 06/03/25
Time of Disposition: 15:31
Presentation/result/management discussed w/ accepting MD/DO: Hospitalist
Discharge Problem:
TIA (transient ischemic attack)
Prescriptions:
No Action
simvastatin [Zocor] 40 mg Tablet
40 mg PO DAILY
clopidogrel [Plavix] 75 mg tablet
75 mg PO DAILY 21 Days Qty: 21 0RF
aspirin 81 mg Tablet,Delayed Release (Dr/Ec)
81 mg PO DAILY
Referrals:
Devante Cyr MD [Family Provider, Internal Medicine]
Interventions
Interventions:
*General Assessment Last Done: 06/03/25 14:52
*Neglect/Abuse Screening Last Done: 06/03/25 14:54
*ED- Fall Risk Assessment Last Done: 06/03/25 14:52
*ED COVID-19 Vaccine History Last Done: 06/03/25 14:52
*ED Influenza Vaccine History Last Done: 06/03/25 14:52
ED- Pulmonary Assessment Last Done: 06/03/25 14:55
ED- Neurological Assessment Last Done: 06/03/25 14:46
ED Swallowing Screen Last Done: 06/03/25 14:40
Discharge Date and Time
Print Language: TELUGU
[2025-06-03 15:10] LABS: Hematocrit 40.4 % (39.0-52.0); Hemoglobin 13.9 g/dL (13.0-18.0); Mean Corp Hgb Conc. 34.4 g/dL (33.0-37.0); Mean Corpuscular Volume 87.1 fL (80.0-94.0); Nucleated Red Blood Cells % 0 % (-); Platelet Count 291 10^3/uL (130-400); Red Cell Dist. Width 12.3 % (11.5-14.5)
[2025-06-03 15:34] LABS: Blood Urea Nitrogen 15 mg/dl (9-20); Calcium 9.7 mg/dl (8.4-10.2); Carbon Dioxide 29 mmol/L (22-30); Chloride 99 mmol/L (98-107); Glucose 207 mg/dl (70-99); Potassium 4.4 mmol/L (3.5-5.1); Sodium 135 mmol/L (135-145); eGFR > 60.00
--- NOTE | 2025-06-03 16:05 | HPS.HSE ---
Family Physician
-
Family Physician: Devante Cyr
Chief Complaint
-
aphasia
History of Present Illness
74yo M with HLD, age-related memory impairment came with onset of transient expressive aphasia described as a word salad. Had same issue yesterday that was transient and associated with lightheadedness. No palpitations noted. No chest pain,
respiratory, GI or urinary symptoms. In ED stroke code called. CTA head and neck was done at the day prior, when patient also was seen by neurologist and deemed appropriate to be sent home on DAPT and statin. As per patient - he did not take his
DAPT on the day of admission. CTA thren showed no LVO and no clinically significant carotid stenosis. As per recommendation from neurologist -admitted for TIA/CVA w/u
Medical History
Past Medical History
Past Medical History: Reports Other
Additional Past Medical History:
see above
Past Surgical History: Reports None
Social History
Tobacco: Former Smoker
Alcohol: Occasional
Drug: None
Family History
Family History: Not pertinent
Allergies / Home Medications
Allergies reflects when Allergies were last updated in [facility].
Home Medications with original date entered in [facility]
Allergy/Medication List:
Allergies
Allergy/AdvReac Type Severity Reaction Status Date / Time
No Known Allergies Allergy Verified 06/03/25 14:24
Home Medications
simvastatin 40 mg tablet (Zocor) 40 mg PO DAILY High Cholesterol 09/26/12
aspirin 81 mg tablet,delayed release 81 mg PO DAILY 06/03/25
clopidogrel 75 mg tablet (Plavix) 75 mg PO DAILY Blood Clot Prevention/Tx 06/03/25
metformin 500 mg tablet,extended release 24 hr 1,000 mg PO DAILY Diabetes 06/03/25
Review of Systems
-
History Source: Patient
A 12 point ROS was completed and negative except as noted: Yes
: Reports Frequency
Neurological: Reports See HPI
Physical Exam
Vital Signs
Vital Signs
Temp Pulse Resp BP Pulse Ox
98.7 F 79 20 163/78 96
06/03/25 14:21 06/03/25 14:45 06/03/25 14:45 06/03/25 14:43 06/03/25 14:55
Physical Exam
General: Well Developed, Well Nourished and No Apparent Distress
HEENT: NormoCephalic, Anicteric and Moist mucous membranes
Respiratory: Clear; No Wheezes or Crackles
Cardiac: S1/S2 and Regular Rhythm; No Murmur
GI: Soft, Non Tender and Non Distended
Musculoskeletal: No Clubbing, No Cyanosis and No Edema
Skin: Warm; No Rash or Jaundice
Neuro: Awake, Alert, Oriented, AO x 3, No Motor Deficits and Nonfocal/grossly intact
Psych: Calm
Laboratory Results
-
06/03/25 15:02
06/03/25 15:02
Data Reviewed
-
CT Scan: Report Reviewed by me
Lab Data: Labs Reviewed by me
Impression/Plan
-
A/P:
#Acute expressive aphasia concern for CVA/TIA
HEad CT with possible sinusitis, but patient asymptomatic
MRI brain
Telemetry
Echo done on 06/02/25: EF 59%, no regional wall motion abnormalities, mild AR, with no evidence of interatrial shunting
check TSH, lipids, HGbA1c
neurochecks as per protocol
Permissive HTN, use labetalol for BP>180/105
EKG at the day prior: SR
#Urinary frequency
possible BPH
outpatient Urology
watch for urinary retention
DVT ppx SCDs
Full code
I have spent at least 76min reviewing chart, test results, communication with consultants and providing direct patient care
--- NOTE | 2025-06-03 17:00 | EDCM ---
Reviewed chart and met with pt bedside in ED. Pt lives with his in 2 story home, [address], first floor half bath, full flight to second floor bedroom and full bath.
Independent in ADLs, personal care and ambulation at baseline, no assistive devices, no DME.
WILKERSON reviewed and signed. Copy left with pt.
Confirms prescription coverage.
No hx VN or SNF.
PCP: Devante Cyr
Pharmacy: [facility]
Anticipate discharge home, CM will continue to follow for all discharge planning needs.
--- NOTE | 2025-06-03 18:25 | PTCARENOTE ---
06/03- Patient transferred and oriented to unit without issue. AAOX3, NIH=1. Patient denies any current needs.
[2025-06-03] MEDS: LIPITOR 40 MG PO (18:38)
[2025-06-03 18:42] LABS: Glucose - Point of Care 128 mg/dl (70-99)
[2025-06-03 19:30] LABS: HDL Cholesterol 52 mg/dl; LDL Cholesterol, Calculated 65 mg/dl; Very Low Density Lipoprotein 38 mg/dl (0-30)
--- NOTE | 2025-06-03 20:22 | CON.NEURO4 ---
Consultation - Neurology 4
-
CONSULTING PHYSICIAN: Dr. Clemente Russell
REFERRING PHYSICIAN: Dr. Abdifatah Brandt
DICTATED BY: Dr. Clemente Russell
DATE/TIME OF REQUEST: 06/03/2025
DATE/TIME OF CONSULTATION: 06/03/2025
Reason for Consultation: Speech difficulty
ASSESSMENT AND PLAN:
The patient is a 74 years old male, with a past medical history of hypercholesterolemia and being a former smoker, who presented to the ER for evaluation of an episode of expressive aphasia and dysarthria which had resolved when he was seen in the
ER. The patient's accompanied him and also provide the history. The patient was also here in the ED yesterday for similar complaint and was discharged on dual antiplatelet therapy and simvastatin. The patient did not take aspirin or Plavix
as prescribed since he left the hospital yesterday. The patient has nowreturned to his baseline.
The patient likely had a transient ischemic attack. The CT of the head done today does not show any acute intracranial abnormality. The CTA of the head and neck done yesterday on 06/02/2025 did not show a large vessel occlusion. The
echocardiogram done yesterday on 06/02/2025 showed a LVEF of 59 % with an intact interatrial septum with no evidence of interatrial shunting. The plan is to get MRI of the brain without contrast.
. The patient is going to be on the stroke pathway. He will be on aspirin 81 mg daily, Plavix 75 mg daily and atorvastatin 40 mg daily.
. Holter monitoring for 30 days, at the time of discharge.
I had a detailed discussion with the patient and his regarding the assessment and the management plan, and they verbalized understanding of our discussion.
History of Present Illness:
The patient is a 74 years old male, with a past medical history of hypercholesterolemia and being a former smoker, who presented to the ER for evaluation of an episode of expressive aphasia and dysarthria which had resolved when he was seen in the
ER. The patient's accompanied him and also provide the history. The patient was also here yesterday for similar complaint and was discharged on dual antiplatelet therapy and simvastatin. The patient did not take aspirin or Plavix as
prescribed since he left the hospital yesterday. The patient has returned to his baseline. He denies speech difficulty at this time and also he denies facial droop or focal weakness of arms and legs.
Past Medical History:
Hypercholesterolemia and history of being a former smoker.
Review of Systems:
The 10 point review systems was negative aside from as given the above history of present illness.
Neurologic Examination:
Alert and oriented x 3,
Speech is clear,
The cranial nerves II to XII are grossly intact,
The visual sharpe are grossly full to to confrontation,
The motor strength is grossly 5/5 bilaterally in upper and lower extremities,
Sensation is grossly intact bilaterally,
There was no limb ataxia seen.
Vital Signs and Labs
-
Vital Signs and Labs:
Vital Signs
Temp Pulse Resp BP Pulse Ox
37.0 C 76 18 143/73 97
06/03/25 20:22 06/03/25 20:22 06/03/25 20:22 06/03/25 20:22 06/03/25 20:22
Lab Results
06/03/25 15:02
06/03/25 15:02
Sodium 135 mmol/L (135-145) 06/03/25 15:02
Potassium 4.4 mmol/L (3.5-5.1) 06/03/25 15:02
BUN 15 mg/dl (9-20) 06/03/25 15:02
Glucose 207 mg/dl (70-99) H 06/03/25 15:02
Calcium 9.7 mg/dl (8.4-10.2) 06/03/25 15:02
LDL Cholesterol, Calc Cancelled 06/03/25 18:15
Medications
-
Active Medications
Generic Name Dose Route Start Last Admin
Trade Name Freq PRN Reason Stop Dose Admin
Acetaminophen 650 mg 06/03/25 18:15
Acetaminophen 650 Mg Rectal Suppository RECTAL 07/01/25 18:14
Q4HPRN PRN
SULLIVAN, mild pain, or temp >100.4F
Acetaminophen 650 mg 06/03/25 18:15 06/03/25 22:15
Acetaminophen 325 Mg Tablet PO 07/01/25 18:14 650 mg
Q4HPRN PRN Administration
SULLIVAN, mild pain, or temp >100.4F
Aspirin 81 mg 06/04/25 08:00
Aspirin 81 Mg (Enteric Coated) Tablet PO 07/02/25 07:59
DAILY MCKENZIE
Atorvastatin Calcium 40 mg 06/03/25 18:15 06/03/25 18:38
Atorvastatin (Lipitor) 40 Mg Tablet PO 07/01/25 18:14 40 mg
QPM MCKENZIE Administration
Clopidogrel Bisulfate 75 mg 06/04/25 08:00
Clopidogrel 75 Mg Tablet PO 07/02/25 07:59
DAILY MCKENZIE
Dextrose 12.5 grams 06/03/25 18:15
Dextrose 50% (0.5 Grams/Ml) 50 Ml Syringe IV 07/01/25 18:14
[id number] PRN
hypoglycemia
Protocol
Glucagon 1 mg 06/03/25 18:15
Glucagon 1 Mg Vial IM 07/01/25 18:14
PRN PRN
hypoglycemia
Protocol
Insulin Aspart 0 units 06/03/25 18:15 06/03/25 18:42
Insulin Aspart Low Resistance 300 Units/3 Ml Pen.Injctr SC 07/01/25 18:14 Not Given
AC MCKENZIE
Protocol
Magnesium Hydroxide 30 ml 06/03/25 18:15
Milk Of Magnesia 30 Ml Cup PO 07/01/25 18:14
BIDPRN PRN
constipation
Sodium Chloride 0 flush 06/03/25 19:00
Sodium Chloride 0.9% (Flush) Syringe IV 07/01/25 18:59
PER PROTOCOL MCKENZIE
Home Medications
�Medication �Instructions �Recorded
simvastatin 40 mg tablet (Zocor) 40 mg PO DAILY High Cholesterol 09/26/12
aspirin 81 mg tablet,delayed 81 mg PO DAILY Blood Clot 06/03/25
release Prevention/Tx
clopidogrel 75 mg tablet (Plavix) 75 mg PO DAILY Blood Clot 06/03/25
Prevention/Tx
metformin 500 mg tablet,extended 1,000 mg PO DAILY Diabetes 06/03/25
release 24 hr
[2025-06-03 21:27] LABS: Glucose - Point of Care 147 mg/dl (70-99)
[2025-06-03] MEDS: TYLENOL 650 MG PO (22:15)
[2025-06-04] VITALS (7 sets, daily range): BP systolic 111–157; BP diastolic 72–78; PULSE 76
[2025-06-04 08:00] LABS: HDL Cholesterol 51 mg/dl; LDL Cholesterol, Calculated 71 mg/dl; Very Low Density Lipoprotein 30 mg/dl (0-30)
[2025-06-04 08:18] LABS: Glucose - Point of Care 143 mg/dl (70-99)
[2025-06-04] MEDS: PLAVIX 75 MG PO (08:28)
[2025-06-04] MEDS: ASPIR LOW (ENTERIC COATED) 81 MG PO (08:28)
[2025-06-04 08:35] LABS: Glycohemoglobin (HgbA1c) 7.8 % (4.0-5.9)
--- NOTE | 2025-06-04 10:50 | PTOTSP ---
pt currently requires no assistance to complete simple ADLs, functional transfers, ambulation. no acute OT needs identified at this time, will sign off.
--- NOTE | 2025-06-04 10:54 | PTOTSP ---
Pt does not appear to have any deficits from TIA's. He is independent with ambulation without need for an assistive device and is able to climb steps without difficulty. Mild tremor noted in hands. PT will sign off.
--- NOTE | 2025-06-04 11:32 | PTOTSP ---
Speech Therapy Evaluation:
Pt with acute risk factors of dysphagia including concern for CVA, however MRI negative. Oropharyngeal swallow appeared functional at bedside. No overt s/sx of aspiration, WBC WNL, pt on room air, and without dysphagia hx.
Recommend:
1. Regular solids and thin liquids
2. Meds as tolerated
3. General aspiration precautions
4. 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
--- NOTE | 2025-06-04 12:40 | W.PN.HOSP.TC ---
Today's Communication/Plan
-
dc
Assessment / Plan
Assessment / Plan
74yo M with DM, HLD, age-related memory impairment came with onset of transient expressive aphasia described as a word salad. Had same issue yesterday that was transient and associated with lightheadedness. No palpitations noted. No chest pain,
respiratory, GI or urinary symptoms. In ED stroke code called. CTA head and neck was done at the day prior, when patient also was seen by neurologist and deemed appropriate to be sent home on DAPT and statin. As per patient - he did not take his
DAPT on the day of admission. CTA thren showed no LVO and no clinically significant carotid stenosis. As per recommendation from neurologist -admitted for TIA/CVA w/u. MRI brain w/o acute stroke. COnt DAPT (plavix for 21 days) and statin. 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 CT head/neck without LVO or carotid stensosis. No arrhtythmia on telemetry
A/P:
#TIA
HEad CT with possible sinusitis, but patient asymptomatic
MRI brain without acute pathology
Telemetry
Echo done on 06/02/25: EF 59%, no regional wall motion abnormalities, mild AR, with no evidence of interatrial shunting
TSH WNL
lipids 71
neurochecks as per protocol
Permissive HTN, use labetalol for BP>180/105
EKG at the day prior: SR
Start 30 day cardiac monitoring - patient already has device at home
#Urinary frequency
possible BPH
outpatient Urology
watch for urinary retention
#DM type 2 with unspecified complications
HgbA1c 7.6%
Strict low carb diet
cont Metformin
might benefit from GLP-1 agonist defer tyo PCP
#2 areas of mild soft tissue thickening within the posterior cervical soft tissues in the midline at the C2 level
likely benign
#HLD
increase statin target LDL <55
#Obesity
BMI 38.6
decrease calorie intake
DVT ppx SCDs
Full code
I have spent at least 36min reviewing chart, test results, communication with consultants and providing direct patient care
Anticipated Discharge: Today
Subjective/Interval History
-
Date of Service: June 04, 2025
Objective Data
-
Vital Signs:
Vital Signs
Temp Pulse Resp BP Pulse Ox
98.4 F 75 18 148/73 94
06/04/25 11:00 06/04/25 11:00 06/04/25 11:00 06/04/25 11:00 06/04/25 11:00
I&O
06/03/25 06/04/25 06/05/25
06:59 06:59 06:59
Intake Total 220 / 220
Balance 220 / 220
Review of Systems
-
History Source: Patient
All other systems: Reviewed and negative
Physical Exam
-
General: No Apparent Distress
HEENT: Normocephalic
Respiratory: Clear to Auscultation
Cardiac: Regular Rhythm
GI: Soft, Nontender and Nondistended
Musculoskeletal: No Clubbing, No Cyanosis and No Edema
Neuro: Awake, Alert, Oriented, AO x 3 and No Motor Deficits
Psych: Calm
[2025-06-04 12:41] LABS: Glucose - Point of Care 179 mg/dl (70-99)
--- NOTE | 2025-06-04 12:43 | W.DCSUMMARY ---
Discharge Summary
Discharge Data
Date of Admission: 06/03/25
Date of Discharge: 06/04/25
-
Pending Results: No
Hospital Course
74yo M with DM, HLD, age-related memory impairment came with onset of transient expressive aphasia described as a word salad. Had same issue yesterday that was transient and associated with lightheadedness. No palpitations noted. No chest pain,
respiratory, GI or urinary symptoms. In ED stroke code called. CTA head and neck was done at the day prior, when patient also was seen by neurologist and deemed appropriate to be sent home on DAPT and statin. As per patient - he did not take his
DAPT on the day of admission. CTA thren showed no LVO and no clinically significant carotid stenosis. As per recommendation from neurologist -admitted for TIA/CVA w/u. MRI brain w/o acute stroke. COnt DAPT (plavix for 21 days) and statin. 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 CT head/neck without LVO or carotid stensosis. No arrhtythmia on telemetry. Echo done on 06/02/25: EF 59%, no
regional wall motion abnormalities, mild AR, with no evidence of interatrial shunting. MEdcially stable to be d/c home - Plavix for 21 total days, ASA, Atorvastatin indefinetely and outpatient PCP for GLP-1 agonist advised. Start 30 day cardiac
monitoring - patient already has device at home, but did not have chance to wear it as was admitted to the hospital
I have spent at least 36min reviewing chart, test results, communication with consultants and providing direct patient care
Patient was managed for:
#TIA
#Urinary frequency
#DM type 2 with unspecified complications
#2 areas of mild soft tissue thickening within the posterior cervical soft tissues in the midline at the C2 level
#HLD
#Obesity
Discharge Plan
-
Patient Disposition: Home (Routine Discharge)
Discharge Diagnosis/Procedures: TIA
Diet: Diabetic, Carb Controlled
Activity: As tolerated
Referrals:
Devante Cyr MD [Family Provider, Internal Medicine] - in less than 1 week
Referral Note: consider GLP-1 agonist
Additional Discharge Medication Instructions: continue Plavix for 19 doses and stop
Prescriptions:
New
atorvastatin 40 mg Tablet
40 mg PO QPM Qty: 30 0RF
Continued
aspirin 81 mg Tablet,Delayed Release (Dr/Ec)
81 mg PO DAILY
metformin 500 mg Tablet Extended Release 24 Hr
1,000 mg PO DAILY
clopidogrel [Plavix] 75 mg tablet
75 mg PO DAILY
Discontinued
simvastatin [Zocor] 40 mg Tablet
40 mg PO DAILY
Discharge Orders:
Discharge Patient (As Directed); Ordered 06/04/25
Ordered By: Abdifatah Brandt
Discharge Date and Time
Print Language: GREEK
--- NOTE | 2025-06-04 12:46 | CM ---
CM reviewed chart, patient seen bedside.
Patient for d/c today, confirms transport home.
PT/OT recommending no needs.
CM will continue to follow.
Plan; home no needs
== END 2025-06-04 15:47 | disposition home or self-care (01) ==
LOC: 4 WEST ACU 16:27
PROVIDERS: ADMITTING PHYSICIAN Internal Medicine; CONSULT PHYSICIAN Psychiatry & Neurology Neurology; EMERGENCY PHYSICIAN Student in an Organized Health Care Education/Training Program; FAMILY PHYSICIAN Internal Medicine
DX: G45.9 Transient cerebral ischemic attack, unspecified (principal); R47.1 Dysarthria and anarthria; R47.01 Aphasia; E11.9 Type 2 diabetes mellitus without complications; E66.9 Obesity, unspecified; R35.0 Frequency of micturition; E78.00 Pure hypercholesterolemia, unspecified; I10 Essential (primary) hypertension; Z79.82 Long term (current) use of aspirin; Z79.02 Long term (current) use of antithrombotics/antiplatelets; Z79.899 Other long term (current) drug therapy; Z79.84 Long term (current) use of oral hypoglycemic drugs; Z68.38 Body mass index [BMI] 38.0-38.9, adult; Z90.49 Acquired absence of other specified parts of digestive tract; Z87.891 Personal history of nicotine dependence
CPT/HCPCS: 70450; 70551; 80048; 80061; 82962; 83036; 84443; 85025; 92610; 97162; 97166; 99285; G0378